=== PATIENT | female | born 1965 | race Caucasian/White ===

== ENCOUNTER 2021-06-25 21:06 | Emergency (ER) | payer BC ==
[~2021-06-25 21:06] MED LIST: ESTRACE1 MG PO; IBUPROFEN600 MG PO; LOPRESSOR 25 MG25 MG PO; NORCO 5-325 TA1 EACH PO; PROTONIX40 MG PO; PROZAC20 MG PO; SYNTHROID100 MCG PO
[2021-06-26 00:08] LABS: RED BLOOD COUNT 5.06 M/UL (4.00-5.10); WHITE BLOOD COUNT 9.3 K/UL (4.5-11.0)
[2021-06-26 00:27] LABS: BUN/CREATININE RATIO 13 (0-10)
[2021-06-26] MEDS ORDERED: ASPIRIN CHEWABL81 MG PO (00:58)
== END 2021-06-26 01:50 | disposition home or self-care (01) ==
LOC: ER1 21:06
PROVIDERS: Family Medicine
DX: Z23 Encounter for immunization (principal); U07.1 COVID-19; I10 Essential (primary) hypertension; E03.9 Hypothyroidism, unspecified; F17.200 Nicotine dependence, unspecified, uncomplicated; Z90.49 Acquired absence of other specified parts of digestive tract; Z88.5 Allergy status to narcotic agent
CPT/HCPCS: 71045; 80053; 83615; 85025; 86140; 99285; M0243